=== PATIENT | female | born 1960 | race Caucasian/White ===

== ENCOUNTER → 2018-05-26 | Outpatient (CLI) | payer OTHER ==
[~2018-05-26] MED LIST: ABILIFY5 MG PO; ATORVASTATIN CA20 MG PO; GABAPENTIN300 MG PO; KLONOPIN1 MG PO; LAMOTRIGINE25 MG PO; LOSARTAN POTASS25 MG PO; METOPROLOL SUCC25 MG PO; OLANZAPINE5 MG PO
--- NOTE | 2018-05-26 16:50 | Diagnostic Imaging Report ---
EXAM: CT Chest WITHOUT contrast 05/26/2018 9:27 AM INDICATION: ^COPD COMPARISON: CT abdomen and pelvis 08/24/2016 TECHNIQUE: Chest was scanned utilizing a multidetector helical scanner from the lung apex through the level of the adrenal glands without administration of IV contrast. Absence of intravenous contrast decreases sensitivity for detection of lymphadenopathy and vascular pathology. Coronal and sagittal reformations were obtained. Routine protocol was performed. IV CONTRAST: None COMPLICATIONS: None RADIATION DOSE: Total DLP: 242.8 mGy*cm Estimated effective dose: (DLP x 0.015 x size factor) mSv CTDIvol has been reviewed. It is below the limits set by the Radiation Protocol Committee (RPC). FINDINGS: LINES/ TUBES: None. LUNGS AND AIRWAYS: Mild bilateral upper lobe predominant centrilobular and paraseptal emphysema. Reticular scarring in the left upper lobe may represent early pulmonary fibrosis (series 3, image 52). No manav honeycombing. Mild bilateral central bronchiectasis. No suspicious pulmonary nodules or masses. No consolidations. PLEURA: The pleural spaces are clear. HEART AND MEDIASTINUM: The thyroid gland is normal. Few nonspecific subcentimeter mediastinal lymph nodes. The heart is normal in size. There is no pericardial effusion. Mild lipomatous hypertrophy of the interatrial septum. Mild atherosclerotic calcifications of the LAD. The thoracic aorta are normal in caliber and associated with mild calcifications in the aortic arch and descending thoracic segment. The main pulmonary artery is normal in caliber measuring 2.8 cm in diameter. UPPER ABDOMEN: Unremarkable. BONES: Remote posttraumatic deformity of the posterior right ninth and 10th ribs. Mild degenerative changes throughout the thoracic spine. SOFT TISSUES: Unremarkable. IMPRESSION: Bilateral centrilobular and paraseptal emphysema with few reticulation of the lungs in the anterior left upper lobe suggestive of a smoking related to mild pulmonary fibrosis. No suspicious pulmonary nodules or masses. Signed by: Dr. iLvia Toribio M.D. on 05/26/2018 4:47 PM
== END ==
LOC: CT 09:17
PROVIDERS: ATTEND Internal Medicine Interventional Cardiology
DX: J44.9 Chronic obstructive pulmonary disease, unspecified (principal)
CPT/HCPCS: 71250

== ENCOUNTER → 2019-03-07 | Day surgery (SDC) | payer OTHER ==
[~2019-03-07] MED LIST changes: +ASPIR 8181 MG PO; +FENTANYL CITRATE/PF 100MCG/2 ML INJ ONE; +METOCLOPRAMIDE HCL 10 MG/2ML VIAL ONE; +MIDAZOLAM HCL 2 MG/2 ML VIAL ONE; +OMEPRAZOLE40 MG PO; +PROPOFOL IV EMULSION 10 MG/ML 20 ML VIAL ONE; +THORAZINE25 MG PO; +VALIUM10 MG PO
--- OUTSIDE RECORDS SUMMARY | 2019-03-07 11:17 | XMS REPORT | Continuity of Care Document ---
Author Author [employer] Address Unknown Phone Unavailable Care Team Providers Care Customs House Broker Name Role Phone [employer] Unavailable Unavailable Problems Problem Status Onset Date Classification Date Reported Comments Source Asymptomatic microscopic hematuria 10/16/2017 01/17/2018 [facility] [place] R31.21 - ASYMPTOMATIC MICROSCOPIC HEMAT Active 10/05/2017 [facility] [place] Diverticulosis of intestine, part unspecified, without perforation or abscess without bleeding 01/17/2018 [facility] [place] Medications No Data Provided for This Section Allergies, Adverse Reactions, Alerts No Known Medication Allergies Immunizations No Data Provided for This Section Results No Data Provided for This Section Pathology Reports No Data Provided for This Section Diagnostic Reports Report Value Date Source Abdomen/Pelvis w/wo IV contrast CT EXAM: CT ABDOMEN AND PELVIS WITH AND WITHOUT CONTRAST DATE: 10/11/2017 11:52 AM CDT INDICATION: R31.21 asymptomatic microscopic hematuria COMPARISON: None. TECHNIQUE: Volumetric CT acquisition of the abdomen and pelvis before and after the intravenous administration contrast. Axial, coronal and sagittal reconstructions. Postcontrast phases: Venous and delayed IV contrast: 100 mL Omnipaque Oral contrast: Water CT Radiation Dose DLP 1079 mGy-cm AEC, mA/kV adjustment by patient size, and/or iterative reconstruction technique were used, per departmental dose-optimization program. FINDINGS: Lines and tubes: None. Lower thorax: Unremarkable Liver and biliary tree: There is a 1.2 cm hypodense lesion in the left hepatic dome seen only on the venous phase images. There are no associated suspicious imaging features. The liver is otherwise unremarkable. Gallbladder: Normal. No CT evidence of gallstones. Pancreas: Normal. Spleen: Normal. Adrenals: Normal. Kidneys and ureters: Normal. No hydronephrosis. No renal masses. No nephrolithiasis. No renal collecting system filling defects. Bladder: Unremarkable Reproductive organs: Hysterectomy. Unremarkable adnexal regions. Gastrointestinal tract: Severe colonic diverticulosis without CT evidence of acute diverticulitis. Appendix: Not visualized Peritoneum and retroperitoneum: No ascites or free air. Lymph nodes: No pathologic adenopathy. Vasculature: Moderate vascular calcification throughout the aorta and iliac arteries Bones: No acute abnormality. Soft tissues: Unremarkable. IMPRESSION: 1. Unremarkable kidneys and renal collecting systems. 2. Diverticulosis. 10/11/2017 [facility] [place] Consultation Notes No Data Provided for This Section Discharge Summaries No Data Provided for This Section History and Physicals No Data Provided for This Section Vital Signs No Data Provided for This Section Encounters Location Location Details Encounter Type Encounter Number Reason For Visit Attending Provider ADM Date DC Date Status Source [facility] [place] Outpt Diag Services [id number] Waldemar Ortiz Jr 10/11/2017 10/12/2017 [facility] [place] Procedures No Data Provided for This Section Assessment and Plan No Data Provided for This Section Plan of Care No Data Provided for This Section Social History Social History Date Source No data available for this section 10/12/2017 [facility] [place] Family History No Data Provided for This Section Advance Directives No Data Provided for This Section Functional Status No Data Provided for This Section
--- OUTSIDE RECORDS SUMMARY | 2019-03-07 11:17 | XMS REPORT | Summary of Care ---
Author Author [facility] [place] Organization [facility] [place] Address Unknown Phone Unavailable Encounter HQ Encntr_alias(FIN) [id number] Date(s): 10/11/17 - 10/11/17 [facility] [place] [address] [phone]- [phone] Encounter Diagnosis Asymptomatic microscopic hematuria (Final) - 10/15/17 Diverticulosis of intestine, part unspecified, without perforation or abscess wi thout bleeding (Final) - Discharge Disposition: Home or Self Care Attending Physician: Waldemar Pope MD Vital Signs No data available for this section Problem List No data available for this section Allergies, Adverse Reactions, Alerts No data available for this section Medications No data available for this section Results No data available for this section Immunizations No data available for this section Procedures No data available for this section Social History No data available for this section Assessment and Plan No data available for this section
--- OUTSIDE RECORDS SUMMARY | 2019-03-07 11:17 | XMS REPORT ---
Author Author [facility] Address Unknown Phone Unavailable Care Team Providers Care Instructor Military Science Name Role Phone CHANTEL MARSH Unavailable Unavailable Problems This patient has no known problems. Allergies, Adverse Reactions, Alerts This patient has no known allergies or adverse reactions. Medications This patient has no known medications. Results Test Description Test Time Test Comments Text Results Atomic Results Result Comments CT CHEST WO 2018-05-26 16:42:00 [facility] [address] [place] [address] Patient Name: JOE AUGUST MR #: [id number] : 1960 Age/Sex: 58/F Req #: [id number] [facility] Physician: Ordered by: CHANTEL MARSH MD Report #: [id number] Location: CT Room/Bed: Procedure: [id number] CT/CT CHEST WO Exam Date: Exam Time: REPORT STATUS: Signed EXAM: CT Chest WITHOUT contrast 05/26/2018 9:27 AM INDICATION: COPD COMPARISON: CT abdomen and pelvis 08/24/2016 TECHNIQUE: Chest was scanned utilizing a multidetector helical scanner from the lung apex through the level of the adrenal glands without administration of IV contrast. Absence of intravenous contrast decreases sensitivity for detection of lymphadenopathy and vascular pathology. Coronal and sagittal reformations were obtained. Routine protocol was performed. IV CONTRAST: None COMPLICATIONS: None RADIATION DOSE: Total DLP: 242.8 mGy*cm Estimated effective dose: (DLP x 0.015 x size factor) mSv CTDIvol has been reviewed. It is below the limits set by the Radiation Protocol Committee (RPC). FINDINGS: LINES/ TUBES: None. LUNGS AND AIRWAYS: Mild bilateral upper lobe predominant centrilobular and paraseptal emphysema. Reticular scarring in the left upper lobe may represent early pulmonary fibrosis (series 3, image 52). No manav honeycombing. Mild bilateral central bronchiectasis. No suspicious pulmonary nodules or masses. No consolidations. PLEURA: The pleural spaces are clear. HEART AND MEDIASTINUM: The thyroid gland is normal. Few nonspecific subcentimeter mediastinal lymph nodes. The heart is normal in size. There is no pericardial effusion. Mild lipomatous hypertrophy of the interatrial septum. Mild atherosclerotic calcifications of the LAD. The thoracic aorta are normal in caliber and associated with mild calcifications in the aortic arch and descending thoracic segment. The main pulmonary artery is normal in caliber measuring 2.8 cm in diameter. UPPER ABDOMEN: Unremarkable. BONES: Remote posttraumatic deformity of the posterior right ninth and 10th ribs. Mild degenerative changes throughout the thoracic spine. SOFT TISSUES: Unremarkable. IMPRESSION: Bilateral centrilobular and paraseptal emphysema with few reticulation of the lungs in the anterior left upper lobe suggestive of a smoking related to mild pulmonary fibrosis. No suspicious pulmonary nodules or masses. Signed by: Dr. Von Toribio M.D. on 05/26/2018 4:47 PM Dictated By: VON TORIBIO MD Electronicall y Signed By: VON TORIBIO MD on 05/26/181646 Transcribed By: LEO on 05/26/181646 COPY TO: CHANTEL MARSH MD
[2019-03-07 15:00] VITALS: BP 123/85
--- NOTE | 2019-03-07 18:31 | Operative Report ---
DATE OF PROCEDURE: 03/07/2019 SURGEON: Dante Vargas MD PROCEDURES: EGD with biopsies. INDICATIONS FOR PROCEDURE: Acid reflux and hoarseness. MEDICATIONS: The patient was done under MAC, please see anesthesiologist's note. PROCEDURE IN DETAIL: With the patient in left lateral decubitus position, a flexible fiberoptic Olympus gastroscope was introduced into the esophagus under direct visualization without any difficulty. The mucosa overlying the distal esophagus revealed some patchy areas of erythema. There was a submucosal polypoid lesion noted in distal esophagus just above the GE junction approximately 1.8 cm was in size with normal overlying mucosa. The patient will need an EUS for further evaluation. The scope was then advanced with ease into the stomach traversing a small sliding hiatal hernia. Mucosa overlying the antrum and the body revealed some patchy erythema and low-grade to moderate edema, and biopsies were obtained, sent to stain for H. pylori. Pylorus was of normal contour and shape, it was intubated with ease and the scope was advanced all the way to the second portion of the duodenum. The scope was then withdrawn slowly, mucosa overlying the proximal second portion and duodenal bulb grossly appeared to be within normal limits. Biopsies were obtained to rule out sprue. The scope was then withdrawn back into the stomach and retroflexed and mucosa overlying the fundus and the cardia appeared to be within normal limits. The scope was then straightened out, it was subsequently withdrawn, and the patient tolerated the procedure well. IMPRESSION: 1. Mild distal esophagitis. 2. Submucosal polypoid lesion distal esophagus just proximal to GE junction with normal overlying mucosa. The patient will need an EUS. 3. Small sliding hiatal hernia. 4. Gastritis, biopsied, biopsies sent to stain for Helicobacter pylori. 5. Rule out sprue. PLAN: Follow up histology. Increase omeprazole to 40 mg one p.o. before meals b.i.d. The patient will need an EUS of the esophageal submucosal lesion. We will need to set up an appointment with Dr. Galeana later. Dante Vargas MD [facility] [place] /[id number] cc: Dr. Jas Balderrama
== END | disposition home or self-care (01) ==
LOC: OR 11:13
PROVIDERS: ATTEND Internal Medicine Gastroenterology
DX: K22.10 Ulcer of esophagus without bleeding (principal); K29.70 Gastritis, unspecified, without bleeding; K22.8 Other specified diseases of esophagus; K21.9 Gastro-esophageal reflux disease without esophagitis; K31.89 Other diseases of stomach and duodenum; K44.9 Diaphragmatic hernia without obstruction or gangrene; K63.5 Polyp of colon; K57.30 Diverticulosis of large intestine without perforation or abscess without bleeding; R49.9 Unspecified voice and resonance disorder; R05 Cough; I10 Essential (primary) hypertension; J44.9 Chronic obstructive pulmonary disease, unspecified; E78.00 Pure hypercholesterolemia, unspecified; G47.00 Insomnia, unspecified; F31.9 Bipolar disorder, unspecified; F41.9 Anxiety disorder, unspecified; F17.210 Nicotine dependence, cigarettes, uncomplicated; Z88.8 Allergy status to other drugs, medicaments and biological substances; Z88.6 Allergy status to analgesic agent; Z01.810 Encounter for preprocedural cardiovascular examination; Z79.82 Long term (current) use of aspirin; Z68.31 Body mass index [BMI] 31.0-31.9, adult
CPT/HCPCS: 43239; 93005; J2250; J2704; J2765; J3010

== ENCOUNTER 2019-04-22 09:12 | Emergency (ER) | payer OTHER ==
[~2019-04-22] VITALS: Ht 160 cm; Wt 86.2 kg
[~2019-04-22 09:12] MED LIST changes: -FENTANYL CITRATE/PF 100MCG/2 ML INJ ONE; -METOCLOPRAMIDE HCL 10 MG/2ML VIAL ONE; -MIDAZOLAM HCL 2 MG/2 ML VIAL ONE; -PROPOFOL IV EMULSION 10 MG/ML 20 ML VIAL ONE
--- OUTSIDE RECORDS SUMMARY | 2019-04-22 09:16 | XMS REPORT | Continuity of Care Document ---
Author Author [employer] Address Unknown Phone Unavailable Care Team Providers Care Vulcanizer Name Role Phone [employer] Unavailable Unavailable Problems Problem Status Onset Date Classification Date Reported Comments Source Asymptomatic microscopic hematuria 10/16/2017 01/17/2018 [facility] [place] R31.21 - ASYMPTOMATIC MICROSCOPIC HEMAT Active 10/05/2017 [facility] [place] Diverticulosis of intestine, part unspecified, without perforation or abscess without bleeding 01/17/2018 [facility] [place] Medications No Data Provided for This Section [...] renal collecting systems. 2. Diverticulosis. 10/11/2017 [facility] [place] Consultation Notes No Data Provided for This Section Discharge Summaries No Data Provided for This Section History and Physicals No Data Provided for This Section Vital Signs No Data Provided for This Section Encounters Location Location Details Encounter Type Encounter Number Reason For Visit Attending Provider ADM Date DC Date Status Source [facility] [place] Outpt Diag Services [id number] Waldemar Ortiz Jr 10/11/2017 10/12/2017 [facility] [place] Procedures No Data Provided for This Section Assessment and Plan No Data Provided for This Section Plan of Care No Data Provided for This Section Social History Social History Date Source No data available for this section 10/12/2017 [facility] [place] Family History No Data Provided for This Section Advance Directives No Data Provided for This Section Functional Status No Data Provided for This Section
--- OUTSIDE RECORDS SUMMARY | 2019-04-22 09:16 | XMS REPORT | Clinical Summary ---
Author Author [facility] Address Unknown Phone Unavailable Care Team Providers Care Screw Machine Operator Single Spindle Name Role Phone Sharpless PCP Allergies Comments Active Allergy Reactions Severity Noted Date Codeine Itching 09/10/2014 Medications End Date Status Medication Sig Dispensed Refills Start Date Active diazePAM (VALIUM) 10 MG Take 10 mg by 0 tablet mouth every 6 (six) hours as needed for Anxiety. Active atorvastatin (LIPITOR) 20 Take 20 mg by 0 MG tablet mouth daily. Active metoprolol (LOPRESSOR) 25 Take 25 mg by 0 MG tablet mouth 2 (two) times daily. Active omeprazole (PRILOSEC) 40 Take 40 mg by 0 MG capsule mouth daily. Active chlorproMAZINE Take 50 mg by 0 (THORAZINE) 50 MG tablet mouth 3 (three) times daily. Active losartan (COZAAR) 50 MG Take 50 mg by 0 tablet mouth daily. Active ergocalciferol (VITAMIN Take 50,000 0 D2) 50,000 unit capsule Units by mouth once a week. Active Problems Not on file Encounters Care Team Description Date Type Specialty José Miguel Howard MD UPPER ENDOSCOPY,ULTRASOUND 04/06/2019 Surgery Kayile Mejia CRNA 04/06/2019 Anesthesia Event José Miguel Howard MD 04/06/2019 Hospital Encounter after 04/21/2018 Social History Date Tobacco Use Types Packs/Day Years Used Current Every Day Smoker 0.5 Smokeless Tobacco: Never Used Tobacco Cessation: Ready to Quit: No; Counseling Given: No Alcohol Use Drinks/Week oz/Week Comments No Alcohol Habits Answer Date Recorded How often do you have a drink containing alcohol? Never 04/06/2019 How many drinks containing alcohol do you have on Not asked a typical day when you are drinking? How often do you have six or more drinks on one Not asked occasion? Sex Assigned at Date Recorded Not on file Industry Job Start Date Occupation Not on file Not on file Not on file Travel End Travel History Travel Start No recent travel history available. Last Filed Vital Signs Time Taken Vital Sign Reading 04/06/2019 10:40 AM CDT Blood Pressure 104/54 04/06/2019 10:40 AM CDT Pulse 54 04/06/2019 10:13 AM CDT Temperature 36.6 C (97.8 F) 04/06/2019 10:40 AM CDT Respiratory Rate 18 04/06/2019 10:40 AM CDT Oxygen Saturation 96% - Inhaled Oxygen - Concentration 04/06/2019 9:38 AM CDT Weight 76.6 kg (168 lb 12.8 oz) 04/06/2019 9:38 AM CDT Height 162.6 cm (5' 4") 04/06/2019 9:38 AM CDT Body Mass Index 28.97 Plan of Treatment Not on file Procedures Comments Procedure Name Priority Date/Time Associated Diagnosis UPPER 04/06/2019 Gastric lesion ENDOSCOPY,ULTRASOUND 11:00 AM CDT Special Needs (LINEAR SCOPE) REPORT OF PROCEDURE - 04/06/2019 ENDOSCOPY URL 10:39 AM CDT after 04/21/2018 Results * REPORT OF PROCEDURE - ENDOSCOPY URL (04/06/2019 10:39 AM CDT) Narrative Performed At after 04/21/2018 Insurance Payer Benefit Subscriber ID Type Phone Address Plan / Group [facility] xxxxxxxxx HMO/POS CARE POS SELECT CHOICE
[2019-04-22] MEDS ORDERED: HYDROMORPHONE 1MG/1ML INJ IM NR (11:00)
[2019-04-22] MEDS ORDERED: KETOROLAC TROMETHAMINE 60 MG/2 ML VIAL IM NR (11:00)
--- NOTE | 2019-04-22 11:23 | NUR ---
1124- Dilaudid 1mg IM to RT Gluteal muscle and Toradol 60mg IM to left Gluteal muscle. Patient max well. Will reasses in 20 min
== END 2019-04-22 11:57 | disposition home or self-care (01) ==
LOC: ER 09:12
DX: M54.32 Sciatica, left side (principal); I10 Essential (primary) hypertension; E11.9 Type 2 diabetes mellitus without complications
CPT/HCPCS: 99283; J1170; J1885

== ENCOUNTER 2019-04-30 23:30 | Emergency (ER) | payer SELFPAY ==
--- OUTSIDE RECORDS SUMMARY | 2019-04-30 23:34 | XMS REPORT | Clinical Summary ---
Author Author [facility] Address Unknown Phone Unavailable Care Team Providers Care Central Office Inspector Name Role Phone Sharpless PCP Allergies Comments [...] Miguel Howard MD UPPER ENDOSCOPY,ULTRASOUND 04/06/2019 Surgery Kaylie Mejia CRNA 04/06/2019 Anesthesia Event José Miguel Howard MD 04/06/2019 Hospital Encounter after 04/29/2018 Social History Date Tobacco Use Types Packs/Day [...] 04/06/2019 ENDOSCOPY URL 10:39 AM CDT after 04/29/2018 Results * REPORT OF PROCEDURE - ENDOSCOPY URL (04/06/2019 10:39 AM CDT) Narrative Performed At after 04/29/2018 Insurance Payer Benefit Subscriber ID Type Phone Address Plan / Group [facility] HMO/POS CARE POS SELECT CHOICE
--- OUTSIDE RECORDS SUMMARY | 2019-04-30 23:34 | XMS REPORT | Continuity of Care Document ---
Author Author [employer] Address Unknown Phone Unavailable Care Team Providers Care Clinical Laboratory Manager Name Role Phone [employer] Unavailable Unavailable Problems Problem Status Onset Date Classification Date Reported Comments Source Asymptomatic microscopic hematuria 10/16/2017 01/17/2018 [facility] [place] R31.21 - ASYMPTOMATIC MICROSCOPIC HEMAT Active 10/05/2017 [facility] [place] Diverticulosis of intestine, part unspecified, without perforation or abscess without bleeding 01/17/2018 [facility] [place] Medications No Data Provided for This Section [...] renal collecting systems. 2. Diverticulosis. 10/11/2017 [facility] [place] Consultation Notes No Data Provided for This Section Discharge Summaries No Data Provided for This Section History and Physicals No Data Provided for This Section Vital Signs No Data Provided for This Section Encounters Location Location Details Encounter Type Encounter Number Reason For Visit Attending Provider ADM Date DC Date Status Source [facility] [place] Outpt Diag Services [id number] Waldemar Ortiz Jr 10/11/2017 10/12/2017 [facility] [place] Procedures No Data Provided for This Section Assessment and Plan No Data Provided for This Section Plan of Care No Data Provided for This Section Social History Social History Date Source No data available for this section 10/12/2017 [facility] [place] Family History No Data Provided for This Section Advance Directives No Data Provided for This Section Functional Status No Data Provided for This Section
--- NOTE | 2019-05-01 00:30 | NUR ---
PT CALLED FOR TRIAGE - NO ANSWER
== END 2019-05-01 00:53 | disposition left against medical advice (07) ==
LOC: ER 23:30
DX: R52 Pain, unspecified (principal)

== ENCOUNTER 2019-05-01 10:38 | Emergency (ER) | payer OTHER ==
[~2019-05-01] VITALS: Ht 160 cm; Wt 86.2 kg
--- OUTSIDE RECORDS SUMMARY | 2019-05-01 10:41 | XMS REPORT | Continuity of Care Document ---
Author Author [employer] Address Unknown Phone Unavailable Care Team Providers Care Nutrition Program Instructor Name Role Phone [employer] Unavailable Unavailable Problems Problem Status Onset Date Classification Date Reported Comments Source Asymptomatic microscopic hematuria 10/16/2017 01/17/2018 [facility] [place] R31.21 - ASYMPTOMATIC MICROSCOPIC HEMAT Active 10/05/2017 [facility] [place] Diverticulosis of intestine, part unspecified, without perforation or abscess without bleeding 01/17/2018 [facility] [place] Medications No Data Provided for This Section [...] collecting systems. 2. Diverticulosis. 10/11/2017 [facility] [place] Consultation Notes No Data Provided for This Section Discharge Summaries No Data Provided for This Section History and Physicals No Data Provided for This Section Vital Signs No Data Provided for This Section Encounters Location Location Details Encounter Type Encounter Number Reason For Visit Attending Provider ADM Date DC Date Status Source [facility] - [place] Outpt Diag Services [id number] Waldemar Ortiz Jr 10/11/2017 10/12/2017 [facility] [place] Procedures No Data Provided for This Section Assessment and Plan No Data Provided for This Section Plan of Care No Data Provided for This Section Social History Social History Date Source No data available for this section 10/12/2017 [facility] [place] Family History No Data Provided for This Section Advance Directives No Data Provided for This Section Functional Status No Data Provided for This Section
[2019-05-01] MEDS ORDERED: KETOROLAC TROMETHAMINE 60 MG/2 ML VIAL IM ONE (11:00)
[2019-05-01 11:19] LABS: BILIRUBIN,URINE NEGATIVE (NEGATIVE); CLARITY,URINE CLEAR (CLEAR); COLOR,URINE YELLOW (YELLOW); KETONES,URINE NEGATIVE (NEGATIVE); LEUKOCYTE ESTERASE ,URINE NEGATIVE (NEGATIVE); NITRITE,URINE NEGATIVE (NEGATIVE); PROTEIN,URINE DIPSTICK TRACE (NEGATIVE); URINE UROBILINOGEN 0.2 mg/dL (0.2 - 1)
[2019-05-01 11:36] LABS: BACTERIA,URINE RARE /HPF; EPITHELIAL CELLS,URINE FEW /LPF
[2019-05-01 12:22] VITALS: BP 106/67
== END 2019-05-01 12:22 | disposition home or self-care (01) ==
LOC: ER 10:38
DX: M54.41 Lumbago with sciatica, right side (principal); N30.91 Cystitis, unspecified with hematuria; I10 Essential (primary) hypertension; F41.9 Anxiety disorder, unspecified; F31.9 Bipolar disorder, unspecified
CPT/HCPCS: 81001; 96372; 99283; J1885

== ENCOUNTER → 2020-11-27 | Outpatient (CLI) | payer OTHER ==
[~2020-11-27] MED LIST changes: +IOPAMIDOL 370 MG/ML 200 ML INFUS..BTL INJ ONE; +SODIUM CHLORIDE 0.9% 50ML 50 ML ONE
[2020-11-27 17:00] LABS: BLOOD UREA NITROGEN 8 mg/dL (7-26); BUN/CREATININE RATIO 10 (6-25); CREATININE, SERUM 0.78 mg/dL (0.57-1.11); EST GLOMERULAR FILTRATION RATE > 60 ML/MIN (60-)
== END ==
LOC: CT 16:07
PROVIDERS: ATTEND Internal Medicine Gastroenterology
DX: R10.33 Periumbilical pain (principal); K42.9 Umbilical hernia without obstruction or gangrene
CPT/HCPCS: 36415; 74177; 82565; 84520; Q9967

== ENCOUNTER → 2020-12-10 | Day surgery (SDC) | payer OTHER ==
[2020-12-05 09:38] LABS: BASOPHILS # (AUTO) 0.1 (0.0-0.1); BASOPHILS % 0.7 % (0.0-1.0); EOSINOPHILS # (AUTO) 0.1 (0.0-0.4); EOSINOPHILS % 1.2 % (0.0-6.0); HEMATOCRIT 40.2 % (34.2-44.1); HEMOGLOBIN 13.4 g/dL (12.0-16.0); LYMPHOCYTES # (AUTO) 2.1 (1.0-3.2); LYMPHOCYTES % 24.3 % (18.0-39.1); MEAN CORPUSCULAR HEMOGLOBIN 32.3 pg (28-32); MEAN CORPUSCULAR HGB CONC 33.3 g/dL (31-35); MEAN CORPUSCULAR VOLUME 96.9 fL (81-99); MONOCYTES # (AUTO) 0.6 (0.2-0.8); MONOCYTES % 6.7 % (4.4-11.3); NEUTROPHILS # (AUTO) 5.6 (2.1-6.9); NEUTROPHILS % 66.9 % (38.7-80.0); PLATELET COUNT 230 x10e3/uL (140-360); RED BLOOD COUNT 4.15 x10e6/uL (3.6-5.1); RED CELL DISTRIBUTION WIDTH 13.2 % (11.7-14.4)
[~2020-12-10] MED LIST changes: +GLUCAGON FOR INJ 1 MG VIAL ONE; +HYOSCYAMINE SULFATE 0.5 MG/ML INJ ONE; -IOPAMIDOL 370 MG/ML 200 ML INFUS..BTL INJ ONE; +KLONOPIN0.5 MG PO; +MIDAZOLAM HCL 2 MG/2 ML VIAL ONE; +PANTOPRAZOLE 40 MG 10ML VIAL ONE; +PROPOFOL IV EMULSION 10 MG/ML 20 ML VIAL ONE; -SODIUM CHLORIDE 0.9% 50ML 50 ML ONE; +TRAZODONE HCL50 MG PO; +TRELEGY ELLIPT1 EACH INH
[2020-12-10 16:39] VITALS: BP 94/75
== END | disposition home or self-care (01) ==
LOC: OR 12:19
PROVIDERS: ATTEND Internal Medicine Gastroenterology
DX: K29.70 Gastritis, unspecified, without bleeding (principal); D12.0 Benign neoplasm of cecum; D12.5 Benign neoplasm of sigmoid colon; K44.9 Diaphragmatic hernia without obstruction or gangrene; K20.90 Esophagitis, unspecified without bleeding; K21.9 Gastro-esophageal reflux disease without esophagitis; K22.8 Other specified diseases of esophagus; K57.30 Diverticulosis of large intestine without perforation or abscess without bleeding; J44.9 Chronic obstructive pulmonary disease, unspecified; E78.5 Hyperlipidemia, unspecified; I10 Essential (primary) hypertension; I73.9 Peripheral vascular disease, unspecified; R00.1 Bradycardia, unspecified; F32.9 Major depressive disorder, single episode, unspecified; F41.9 Anxiety disorder, unspecified; F17.210 Nicotine dependence, cigarettes, uncomplicated; Z88.6 Allergy status to analgesic agent; Z01.810 Encounter for preprocedural cardiovascular examination; Z01.812 Encounter for preprocedural laboratory examination; Z20.822 Contact with and (suspected) exposure to COVID-19; Z79.82 Long term (current) use of aspirin
CPT/HCPCS: 36415; 43235; 45384; 45385; 85025; 93005; C9113; J1610; J1980; J2704; U0002; 45378; J2250

== ENCOUNTER 2020-12-11 14:14 | Emergency (ER) | payer OTHER ==
[~2020-12-11] VITALS: Ht 162.6 cm; Wt 78.9 kg
[~2020-12-11 14:14] MED LIST changes: -GLUCAGON FOR INJ 1 MG VIAL ONE; -HYOSCYAMINE SULFATE 0.5 MG/ML INJ ONE; -MIDAZOLAM HCL 2 MG/2 ML VIAL ONE; -PANTOPRAZOLE 40 MG 10ML VIAL ONE; -PROPOFOL IV EMULSION 10 MG/ML 20 ML VIAL ONE
[2020-12-11] MEDS ORDERED: SODIUM CHLORIDE 0.9% 1000ML 1,000 ML IV SCH (14:45)
[2020-12-11] MEDS ORDERED: SODIUM CHLORIDE 0.9% 1000ML 1,000 ML ONE (14:59)
[2020-12-11 16:47] VITALS: BP 157/80
== END 2020-12-11 16:49 | disposition home or self-care (01) ==
LOC: FSED 14:45
DX: R42 Dizziness and giddiness (principal); E86.1 Hypovolemia; E86.0 Dehydration; I10 Essential (primary) hypertension; E78.5 Hyperlipidemia, unspecified; J44.9 Chronic obstructive pulmonary disease, unspecified; F31.9 Bipolar disorder, unspecified; F17.210 Nicotine dependence, cigarettes, uncomplicated
CPT/HCPCS: 80053; 81003; 82553; 84484; 85025; 93005; 99283; J7030

== ENCOUNTER → 2021-02-05 | Outpatient (CLI) | payer OTHER ==
[~2021-02-05] MED LIST changes: +IOPAMIDOL 370 MG/ML 200 ML INFUS..BTL INJ ONE; +SODIUM CHLORIDE 0.9% 50ML 50 ML ONE
== END ==
LOC: CT 07:07
PROVIDERS: ATTEND Nurse Practitioner Family
DX: R06.02 Shortness of breath (principal); J44.9 Chronic obstructive pulmonary disease, unspecified
CPT/HCPCS: 71260; Q9967

== ENCOUNTER 2021-06-04 13:36 | Emergency (ER) | payer OTHER ==
[~2021-06-04] VITALS: Ht 162.6 cm; Wt 78.9 kg
[~2021-06-04 13:36] MED LIST changes: -IOPAMIDOL 370 MG/ML 200 ML INFUS..BTL INJ ONE; -SODIUM CHLORIDE 0.9% 50ML 50 ML ONE
[2021-06-04] MEDS ORDERED: CIPROFLOXACIN 400 MG/D5W 200ML 200 ML IV SCH (14:45)
[2021-06-04] MEDS ORDERED: METRONIDAZOLE 500MG/NS 100ML 100 ML IV SCH (14:45)
[2021-06-04] MEDS ORDERED: KETOROLAC TROMETHAMINE 30 MG/ML VIAL IV STA (15:25)
[2021-06-04] MEDS ORDERED: METRONIDAZOLE 500MG/NS 100ML 100 ML IV ONE (15:32)
[2021-06-04] MEDS ORDERED: CIPROFLOXACIN 400 MG/D5W 200ML 200 ML IV ONE (15:33)
[2021-06-04] MEDS ORDERED: KETOROLAC TROMETHAMINE 30 MG/ML VIAL ONE (15:42)
[2021-06-04 16:28] VITALS: BP 123/70
== END 2021-06-04 16:31 | disposition home or self-care (01) ==
LOC: FSED 14:29
DX: R10.32 Left lower quadrant pain (principal); K57.32 Diverticulitis of large intestine without perforation or abscess without bleeding; I10 Essential (primary) hypertension; E78.5 Hyperlipidemia, unspecified; J44.9 Chronic obstructive pulmonary disease, unspecified; F31.9 Bipolar disorder, unspecified
CPT/HCPCS: 74176; 80053; 85025; 99283; J0744; J1885

== ENCOUNTER 2021-06-14 10:22 | Inpatient (IN) | payer OTHER ==
[~2021-06-14] VITALS: Ht 162.6 cm; Wt 78.9 kg
[2021-06-14] MEDS ORDERED: SODIUM CHLORIDE 0.9% 1000ML 1,000 ML IV STA (10:40)
[2021-06-14] MEDS ORDERED: KETOROLAC TROMETHAMINE 30 MG/ML VIAL IV ONE (10:40)
[2021-06-14] MEDS ORDERED: FENTANYL CITRATE/PF 100MCG/2 ML INJ IV ONE (10:45)
[2021-06-14] MEDS ORDERED: ONDANSETRON HCL INJ 2MG/ML 2ML 2 MG/ML VIAL IV PRN (10:45)
[2021-06-14 11:03] LABS: BASOPHILS # (AUTO) 0.1 (0.0-0.1); BASOPHILS % 0.7 % (0.0-1.0); EOSINOPHILS # (AUTO) 0.1 (0.0-0.4); EOSINOPHILS % 1.1 % (0.0-6.0); HEMATOCRIT 41.8 % (34.2-44.1); HEMOGLOBIN 13.6 g/dL (12.0-16.0); LYMPHOCYTES % 26.5 % (18.0-39.1); MEAN CORPUSCULAR HEMOGLOBIN 32.1 pg (28-32); MEAN CORPUSCULAR HGB CONC 32.5 g/dL (31-35); MEAN CORPUSCULAR VOLUME 98.6 fL (81-99); MONOCYTES # (AUTO) 0.5 (0.2-0.8); MONOCYTES % 7.2 % (4.4-11.3); NEUTROPHILS # (AUTO) 4.7 (2.1-6.9); NEUTROPHILS % 64.2 % (38.7-80.0); PLATELET COUNT 269 x10e3/uL (140-360); RED BLOOD COUNT 4.24 x10e6/uL (3.6-5.1); RED CELL DISTRIBUTION WIDTH 12.4 % (11.7-14.4)
[2021-06-14] MEDS: LEVOFLOXACIN 750MG/D5W 150ML 150 ML IV SCH (11:15)
[2021-06-14 11:22] LABS: ALBUMIN 3.9 g/dL (3.5-5.0); ALBUMIN/GLOBULIN RATIO 1.1 (0.8-2.0); ANION GAP 14.7 mmol/L (8-16); CALCIUM 9.2 mg/dL (8.4-10.2); CREATININE, SERUM 0.79 mg/dL (0.57-1.11); POTASSIUM 3.7 mmol/L (3.5-5.1)
[2021-06-14] MEDS: METRONIDAZOLE 750MG/NS 150ML 150 ML IV SCH ×2 (12:24→23:24)
[2021-06-14 13:07] LABS: CLARITY,URINE CLEAR (CLEAR); COLOR,URINE YELLOW (YELLOW); KETONES,URINE NEGATIVE (NEGATIVE); LEUKOCYTE ESTERASE ,URINE NEGATIVE (NEGATIVE); NITRITE,URINE NEGATIVE (NEGATIVE); PROTEIN,URINE DIPSTICK NEGATIVE (NEGATIVE); URINE UROBILINOGEN 0.2 mg/dL (0.2 - 1)
[2021-06-14 13:08] LABS: BACTERIA,URINE RARE /HPF; EPITHELIAL CELLS,URINE FEW /LPF; WBC,URINE (MAN) 0-5 /HPF (0-5)
[2021-06-14] MEDS: SODIUM CHLORIDE 0.9% 1000ML 1,000 ML IV SCH ×2 (13:55→21:45)
[2021-06-14] MEDS: ONDANSETRON HCL INJ 2MG/ML 2ML 2 MG/ML VIAL IV PRN (15:37)
[2021-06-14 15:40] VITALS: BP 119/91
[2021-06-14] MEDS ORDERED: TRAMADOL HCL 50 MG TAB PO PRN (18:00)
[2021-06-14] MEDS: METOPROLOL SUCCINATE 25 MG TAB XL PO SCH (18:06)
[2021-06-14 20:00] VITALS: BP 113/66
[2021-06-14] MEDS ORDERED: ALBUTEROL/IPRATROPIUM 3 ML NEB NEB PRN (20:45)
[2021-06-14] MEDS ORDERED: TRAZODONE HCL 50 MG TAB PO SCH (21:00)
[2021-06-14 21:05] VITALS: BP 113/66
[2021-06-14] MEDS: ATORVASTATIN 20 MG TAB PO SCH (21:45)
[2021-06-14] MEDS: MELATONIN 5 MG TABLET PO SCH (21:45)
[2021-06-15] VITALS (8 sets, daily range): BP systolic 95–144; BP diastolic 57–73
[2021-06-15 06:20] LABS: BASOPHILS # (AUTO) 0.1 (0.0-0.1); BASOPHILS % 0.8 % (0.0-1.0); EOSINOPHILS # (AUTO) 0.2 (0.0-0.4); EOSINOPHILS % 2.4 % (0.0-6.0); HEMATOCRIT 36.8 % (34.2-44.1); HEMOGLOBIN 11.6 g/dL (12.0-16.0); LYMPHOCYTES # (AUTO) 2.1 (1.0-3.2); MEAN CORPUSCULAR HEMOGLOBIN 31.6 pg (28-32); MEAN CORPUSCULAR HGB CONC 31.5 g/dL (31-35); MEAN CORPUSCULAR VOLUME 100.3 fL (81-99); MONOCYTES # (AUTO) 0.4 (0.2-0.8); MONOCYTES % 7.1 % (4.4-11.3); NEUTROPHILS # (AUTO) 3.4 (2.1-6.9); NEUTROPHILS % 55.4 % (38.7-80.0); PLATELET COUNT 221 x10e3/uL (140-360); RED BLOOD COUNT 3.67 x10e6/uL (3.6-5.1); RED CELL DISTRIBUTION WIDTH 12.3 % (11.7-14.4)
[2021-06-15 06:39] LABS: ANION GAP 12.9 mmol/L (8-16); CALCIUM 8.8 mg/dL (8.4-10.2); CREATININE, SERUM 0.76 mg/dL (0.57-1.11); POTASSIUM 3.9 mmol/L (3.5-5.1)
[2021-06-15] MEDS: SODIUM CHLORIDE 0.9% 1000ML 1,000 ML IV SCH (07:18)
[2021-06-15] MEDS ORDERED: CHLORDIAZEPOXIDE/CLIDINIUM 1 CAP PO SCH (07:30)
[2021-06-15] MEDS: CLONAZEPAM 0.5 MG TAB PO SCH (08:25)
[2021-06-15] MEDS: ENOXAPARIN SOD INJ 40 MG/0.4 ML SYR SC SCH (08:25)
[2021-06-15] MEDS: METOPROLOL SUCCINATE 25 MG TAB XL PO SCH ×3 (08:25→20:11)
[2021-06-15] MEDS: ASPIRIN 81 MG CHEW TAB PO SCH (08:25)
[2021-06-15] MEDS: LEVOFLOXACIN 750MG/D5W 150ML 150 ML IV SCH (08:25)
[2021-06-15] MEDS: DICYCLOMINE HCL 20 MG TAB PO SCH ×3 (08:25→20:10)
[2021-06-15] MEDS: PANTOPRAZOLE SOD 40 MG TABEC PO SCH (08:25)
[2021-06-15] MEDS ORDERED: LAMOTRIGINE 25 MG TAB PO SCH (09:00)
[2021-06-15] MEDS: METRONIDAZOLE 750MG/NS 150ML 150 ML IV SCH (10:45)
[2021-06-15] MEDS: PIPERACILLIN/TAZOBACTAM 3.375 GM in SODIUM CHLORIDE 0.9% 50ML 50 ML IV SCH ×2 (13:39→21:02)
[2021-06-15] MEDS ORDERED: NICOTINE 21 MG/EA PATCH TOP PRN (17:15)
[2021-06-15] MEDS: ATORVASTATIN 20 MG TAB PO SCH (20:10)
[2021-06-15] MEDS: MELATONIN 5 MG TABLET PO SCH (20:10)
[2021-06-15] MEDS ORDERED: LAMOTRIGINE200 MG PO (20:16)
[2021-06-15] MEDS ORDERED: LAMOTRIGINE 100 MG TAB PO ONE (20:30)
[2021-06-15] MEDS ORDERED: LAMOTRIGINE 25 MG TAB PO ONE (20:30)
[2021-06-16] VITALS: BP 105/50
[2021-06-16 04:00] VITALS: BP 120/78
[2021-06-16] MEDS: PIPERACILLIN/TAZOBACTAM 3.375 GM in SODIUM CHLORIDE 0.9% 50ML 50 ML IV SCH (05:13)
[2021-06-16] MEDS: ONDANSETRON HCL INJ 2MG/ML 2ML 2 MG/ML VIAL IV PRN (07:00)
[2021-06-16 07:54] VITALS: BP 150/68
[2021-06-16 08:08] VITALS: BP 150/68
[2021-06-16] MEDS ORDERED: ONDANSETRON HCL INJ 2MG/ML 2ML 2 MG/ML VIAL IV PRN (08:45)
[2021-06-16] MEDS: ENOXAPARIN SOD INJ 40 MG/0.4 ML SYR SC SCH (08:48)
[2021-06-16] MEDS: DICYCLOMINE HCL 20 MG TAB PO SCH (08:48)
[2021-06-16] MEDS: ASPIRIN 81 MG CHEW TAB PO SCH (08:48)
[2021-06-16] MEDS: CLONAZEPAM 0.5 MG TAB PO SCH (08:48)
[2021-06-16] MEDS: PANTOPRAZOLE SOD 40 MG TABEC PO SCH (08:48)
[2021-06-16] MEDS: METOPROLOL SUCCINATE 25 MG TAB XL PO SCH (08:52)
[2021-06-16] MEDS ORDERED: LAMOTRIGINE 100 MG TAB PO SCH (09:00)
== END 2021-06-16 11:32 | disposition left against medical advice (07) | DRG 392 ==
LOC: ER 10:47 → ERHOLD 13:43 → MED/SURG 15:42 → OBSVTOIN 20:35
PROVIDERS: ADMIT Internal Medicine; ATTEND Internal Medicine
DX: K57.32 Diverticulitis of large intestine without perforation or abscess without bleeding (principal); J44.9 Chronic obstructive pulmonary disease, unspecified; I10 Essential (primary) hypertension; F31.9 Bipolar disorder, unspecified; K29.70 Gastritis, unspecified, without bleeding; Z20.822 Contact with and (suspected) exposure to COVID-19
CPT/HCPCS: 36415; 80048; 80053; 81001; 82948; 83690; 85025; 94799; 99284; J1650; J1885; J2405; J2543; J3010; J7030; U0002

== ENCOUNTER → 2021-07-14 | Day surgery (SDC) | payer OTHER ==
[2021-07-11 10:15] LABS: BASOPHILS # (AUTO) 0.1 (0.0-0.1); BASOPHILS % 0.7 % (0.0-1.0); EOSINOPHILS # (AUTO) 0.2 (0.0-0.4); EOSINOPHILS % 2.1 % (0.0-6.0); HEMATOCRIT 41.4 % (34.2-44.1); HEMOGLOBIN 13.3 g/dL (12.0-16.0); LYMPHOCYTES % 24.7 % (18.0-39.1); MEAN CORPUSCULAR HEMOGLOBIN 31.4 pg (28-32); MEAN CORPUSCULAR HGB CONC 32.1 g/dL (31-35); MEAN CORPUSCULAR VOLUME 97.9 fL (81-99); MONOCYTES # (AUTO) 0.5 (0.2-0.8); MONOCYTES % 6.2 % (4.4-11.3); NEUTROPHILS # (AUTO) 5.4 (2.1-6.9); NEUTROPHILS % 66.1 % (38.7-80.0); PLATELET COUNT 252 x10e3/uL (140-360); RED BLOOD COUNT 4.23 x10e6/uL (3.6-5.1); RED CELL DISTRIBUTION WIDTH 12.4 % (11.7-14.4)
[2021-07-11 10:35] LABS: ALBUMIN 3.9 g/dL (3.5-5.0); ALBUMIN/GLOBULIN RATIO 1.1 (0.8-2.0); ANION GAP 13.8 mmol/L (8-16); CALCIUM 9.3 mg/dL (8.4-10.2); CREATININE, SERUM 0.89 mg/dL (0.57-1.11); POTASSIUM 3.8 mmol/L (3.5-5.1)
[2021-07-14] VITALS (7 sets, daily range): BP systolic 103–123; BP diastolic 64–76
[~2021-07-14] VITALS: Ht 162.6 cm; Wt 77.6 kg
[~2021-07-14] MED LIST changes: +ALPRAZOLAM 0.5 MG TAB ONE; +DIPHENHYDRAMINE HCL 25 MG CAP ONE; +FENTANYL CITRATE/PF 100MCG/2 ML INJ ONE; +HEPARIN SOD (PORCINE) 1000 UNIT/ML 30ML ONE; +HEPARIN SOD/SOD CHLORIDE 2,000 ML ONE; +IOPAMIDOL 370 MG/ML 200 ML INFUS..BTL INJ ONE; +LAMOTRIGINE200 MG PO; +LIDOCAINE HCL 2% LOCAL 20 ML VIAL ONE; +MIDAZOLAM HCL 2 MG/2 ML VIAL ONE; +NITROGLYCERIN/D5W 200 MCG/ML 250 ML ONE; +SODIUM CHLORIDE 0.9% 1000ML 1,000 ML ONE; +VERAPAMIL HCL 2.5 MG/ML 2 ML VIAL ONE
== END | disposition home or self-care (01) ==
LOC: CATH LAB 09:26
PROVIDERS: ATTEND Internal Medicine Interventional Cardiology
DX: I25.10 Atherosclerotic heart disease of native coronary artery without angina pectoris (principal); Z01.812 Encounter for preprocedural laboratory examination; Z20.822 Contact with and (suspected) exposure to COVID-19; Z88.5 Allergy status to narcotic agent; J45.909 Unspecified asthma, uncomplicated; I10 Essential (primary) hypertension
CPT/HCPCS: 36415; 80053; 83880; 85025; 93454; C1887; J1644; J2001; J2250; J3010; J7030; Q9967; U0002; 99153

== ENCOUNTER → 2021-08-15 | Outpatient (CLI) | payer OTHER ==
[~2021-08-15] MED LIST changes: -ALPRAZOLAM 0.5 MG TAB ONE; -DIPHENHYDRAMINE HCL 25 MG CAP ONE; -FENTANYL CITRATE/PF 100MCG/2 ML INJ ONE; -HEPARIN SOD (PORCINE) 1000 UNIT/ML 30ML ONE; -HEPARIN SOD/SOD CHLORIDE 2,000 ML ONE; -IOPAMIDOL 370 MG/ML 200 ML INFUS..BTL INJ ONE; -LIDOCAINE HCL 2% LOCAL 20 ML VIAL ONE; -MIDAZOLAM HCL 2 MG/2 ML VIAL ONE; -NITROGLYCERIN/D5W 200 MCG/ML 250 ML ONE; -SODIUM CHLORIDE 0.9% 1000ML 1,000 ML ONE; -VERAPAMIL HCL 2.5 MG/ML 2 ML VIAL ONE
== END ==
LOC: CT 13:31
PROVIDERS: ATTEND Internal Medicine Critical Care Medicine
DX: J44.9 Chronic obstructive pulmonary disease, unspecified (principal); G47.33 Obstructive sleep apnea (adult) (pediatric); K21.9 Gastro-esophageal reflux disease without esophagitis; F41.9 Anxiety disorder, unspecified; F17.200 Nicotine dependence, unspecified, uncomplicated
CPT/HCPCS: 71250

== ENCOUNTER → 2021-09-05 | Outpatient (CLI) | payer OTHER | LOC: RESP 11:55 | PROVIDERS: ATTEND Internal Medicine Critical Care Medicine | DX: J43.9 Emphysema, unspecified (principal); G47.33 Obstructive sleep apnea (adult) (pediatric); K21.9 Gastro-esophageal reflux disease without esophagitis; F41.9 Anxiety disorder, unspecified; Z20.822 Contact with and (suspected) exposure to COVID-19; F17.200 Nicotine dependence, unspecified, uncomplicated | CPT/HCPCS: 94060; 94664; 94729; U0002 ==

== ENCOUNTER 2022-04-06 09:03 | Emergency (ER) | payer OTHER ==
[~2022-04-06] VITALS: Ht 162.6 cm; Wt 83.7 kg
[2022-04-06] MEDS ORDERED: KETOROLAC TROMETHAMINE 30 MG/ML VIAL IV ONE (09:30)
[2022-04-06] MEDS ORDERED: FAMOTIDINE 20 MG/2 ML VIAL IV ONE ×2 (09:30→10:09)
[2022-04-06] MEDS ORDERED: ONDANSETRON HCL INJ 2MG/ML 2ML 2 MG/ML VIAL IV ONE (09:30)
[2022-04-06] MEDS ORDERED: SODIUM CHLORIDE 0.9% 1000ML 1,000 ML IV STA (09:30)
[2022-04-06] MEDS ORDERED: VALIUM5 MG PO (09:48)
[2022-04-06] MEDS ORDERED: SODIUM CHLORIDE 0.9% 1000ML 1,000 ML ONE (10:08)
[2022-04-06] MEDS ORDERED: ONDANSETRON HCL INJ 2MG/ML 2ML 2 MG/ML VIAL ONE (10:08)
[2022-04-06] MEDS ORDERED: PROVENTIL HFA6.7 GM INH (10:09)
[2022-04-06] MEDS ORDERED: TRELEGY ELLIPT1 EAC1 (10:09)
[2022-04-06] MEDS ORDERED: KETOROLAC TROMETHAMINE 30 MG/ML VIAL ONE (10:09)
[2022-04-06] MEDS ORDERED: IOPAMIDOL 370 MG/ML 100 ML INFUS..BTL INJ ONE (10:18)
[2022-04-06] MEDS ORDERED: LEVOFLOXACIN 500 MG TAB PO ONE (11:30)
[2022-04-06] MEDS ORDERED: METRONIDAZOLE 500MG/NS 100ML 100 ML IV ONE ×2 (11:30→11:56)
[2022-04-06] MEDS ORDERED: ACETAMINOPHEN-1 EAC4 PO (11:33)
[2022-04-06] MEDS ORDERED: ONDANSETRON ODT4 MG PO (11:33)
[2022-04-06] MEDS ORDERED: LEVOFLOXACIN500 MG PO (11:33)
[2022-04-06] MEDS ORDERED: METRONIDAZOLE500 MG PO (11:33)
[2022-04-06] MEDS ORDERED: LEVOFLOXACIN 500 MG TAB ONE (11:56)
== END 2022-04-06 12:52 | disposition home or self-care (01) ==
LOC: FSED 09:08
DX: R10.30 Lower abdominal pain, unspecified (principal); K57.32 Diverticulitis of large intestine without perforation or abscess without bleeding; R11.0 Nausea; R19.7 Diarrhea, unspecified; I10 Essential (primary) hypertension; J44.9 Chronic obstructive pulmonary disease, unspecified; E78.5 Hyperlipidemia, unspecified; K21.9 Gastro-esophageal reflux disease without esophagitis; F41.9 Anxiety disorder, unspecified; F31.9 Bipolar disorder, unspecified
CPT/HCPCS: 74177; 80048; 80076; 81003; 85025; 96374; 96375; 99284; J1885; J2405; J7030; Q9967

== ENCOUNTER → 2022-12-14 | Day surgery (SDC) | payer OTHER ==
[~2022-12-14] MED LIST changes: +ACETAMINOPHEN-1 EAC4 PO; +BENZONATATE200 MG PO; +CHLORPROMAZINE50 MG PO; +FENTANYL CITRATE/PF 100MCG/2 ML INJ ONE; +LACTATED RINGER'S 1,000 ML ONE; +LEVOFLOXACIN500 MG PO; +LIDOCAINE HCL 2% LOCAL INJ 5 ML SDV VIAL INJ ONE; +METOCLOPRAMIDE HCL 10 MG/2ML VIAL ONE; +METRONIDAZOLE500 MG PO; +ONDANSETRON ODT4 MG PO; +PROBIOTIC & AC1 EACH PO; +PROPOFOL IV EMULSION 10 MG/ML 20 ML VIAL ONE; +PROVENTIL HFA6.7 GM INH; +TRELEGY ELLIPT1 EAC1; +TRELEGY ELLIPT1 EACH; +VALIUM5 MG PO
[2022-12-14 08:17] VITALS: BP 124/76; PULSE 72; RESP 18; O2SAT 97
== END | disposition home or self-care (01) ==
LOC: OR 09:02
PROVIDERS: ATTEND Internal Medicine Gastroenterology
DX: K29.60 Other gastritis without bleeding (principal); K22.89 Other specified disease of esophagus; K21.9 Gastro-esophageal reflux disease without esophagitis; K20.90 Esophagitis, unspecified without bleeding; K44.9 Diaphragmatic hernia without obstruction or gangrene; Z86.010 Personal history of colon polyps; Z71.3 Dietary counseling and surveillance; I10 Essential (primary) hypertension; E78.00 Pure hypercholesterolemia, unspecified; J44.9 Chronic obstructive pulmonary disease, unspecified; F31.9 Bipolar disorder, unspecified; F41.9 Anxiety disorder, unspecified; F17.210 Nicotine dependence, cigarettes, uncomplicated; Z71.6 Tobacco abuse counseling; Z88.6 Allergy status to analgesic agent; Z01.810 Encounter for preprocedural cardiovascular examination; Z79.899 Other long term (current) drug therapy; Z68.31 Body mass index [BMI] 31.0-31.9, adult; Z87.19 Personal history of other diseases of the digestive system
CPT/HCPCS: 43239; 93005; C9113; J2001; J2704; J2765; J7121

== ENCOUNTER 2023-05-28 22:26 | Emergency (ER) | payer OTHER ==
[~2023-05-28] VITALS: Ht 162.6 cm; Wt 83.5 kg
[~2023-05-28 22:26] MED LIST changes: -FENTANYL CITRATE/PF 100MCG/2 ML INJ ONE; -LACTATED RINGER'S 1,000 ML ONE; -LIDOCAINE HCL 2% LOCAL INJ 5 ML SDV VIAL INJ ONE; -METOCLOPRAMIDE HCL 10 MG/2ML VIAL ONE; -PROPOFOL IV EMULSION 10 MG/ML 20 ML VIAL ONE
[2023-05-28 22:30] VITALS: O2SAT 100
== END 2023-05-28 22:49 | disposition home or self-care (01) ==
LOC: ER 22:35
DX: R13.10 Dysphagia, unspecified (principal); K22.2 Esophageal obstruction; I10 Essential (primary) hypertension; J44.9 Chronic obstructive pulmonary disease, unspecified; E78.5 Hyperlipidemia, unspecified; K21.9 Gastro-esophageal reflux disease without esophagitis; F31.9 Bipolar disorder, unspecified; Z87.19 Personal history of other diseases of the digestive system
CPT/HCPCS: 99282

== ENCOUNTER → 2023-06-08 | Day surgery (SDC) | payer OTHER ==
[2023-06-07 08:42] LABS: BASOPHILS # (AUTO) 0.1 (0.0-0.1); BASOPHILS % 0.7 % (0.0-1.0); EOSINOPHILS # (AUTO) 0.2 (0.0-0.4); EOSINOPHILS % 1.7 % (0.0-6.0); HEMATOCRIT 41.9 % (34.2-44.1); HEMOGLOBIN 14.2 g/dL (12.0-16.0); LYMPHOCYTES # (AUTO) 2.7 (1.0-3.2); LYMPHOCYTES % 28.6 % (18.0-39.1); MEAN CORPUSCULAR HEMOGLOBIN 33.3 pg (28-32); MEAN CORPUSCULAR HGB CONC 33.9 g/dL (31-35); MEAN CORPUSCULAR VOLUME 98.1 fL (81-99); MONOCYTES # (AUTO) 0.7 (0.2-0.8); MONOCYTES % 7.2 % (4.4-11.3); NEUTROPHILS # (AUTO) 5.8 (2.1-6.9); NEUTROPHILS % 61.6 % (38.7-80.0); PLATELET COUNT 219 x10e3/uL (140-360); RED BLOOD COUNT 4.27 x10e6/uL (3.6-5.1); WHITE BLOOD COUNT 9.43 x10e3/uL (4.8-10.8)
[~2023-06-08] MED LIST changes: +DEXMEDETOMIDINE HCL 200 MCG/2 ML VIAL ONE; +FENTANYL CITRATE/PF 100MCG/2 ML INJ ONE; +LACTATED RINGER'S 1,000 ML ONE; +LIDOCAINE HCL 2% LOCAL INJ 5 ML SDV VIAL INJ ONE; +METOCLOPRAMIDE HCL 10 MG/2ML VIAL ONE; +PROPOFOL IV EMULSION 10 MG/ML 20 ML VIAL ONE
[2023-06-08 14:22] VITALS: TEMP 97.3
[2023-06-08 14:35] VITALS: BP 133/81; PULSE 75; RESP 16; O2SAT 96
== END | disposition home or self-care (01) ==
LOC: ENDO 13:09
PROVIDERS: ATTEND Internal Medicine Gastroenterology
DX: K20.90 Esophagitis, unspecified without bleeding (principal); K29.70 Gastritis, unspecified, without bleeding; K22.89 Other specified disease of esophagus; K44.9 Diaphragmatic hernia without obstruction or gangrene; K31.1 Adult hypertrophic pyloric stenosis; K21.9 Gastro-esophageal reflux disease without esophagitis; Z86.010 Personal history of colon polyps; Z71.3 Dietary counseling and surveillance; I10 Essential (primary) hypertension; J44.9 Chronic obstructive pulmonary disease, unspecified; E78.5 Hyperlipidemia, unspecified; G40.909 Epilepsy, unspecified, not intractable, without status epilepticus; F41.9 Anxiety disorder, unspecified; F31.9 Bipolar disorder, unspecified; F17.210 Nicotine dependence, cigarettes, uncomplicated; Z71.6 Tobacco abuse counseling; Z88.6 Allergy status to analgesic agent; Z01.812 Encounter for preprocedural laboratory examination; Z79.899 Other long term (current) drug therapy; Z68.30 Body mass index [BMI] 30.0-30.9, adult
CPT/HCPCS: 36415; 43235; 43450; 85025; C9113; J2001; J2704; J2765; J3010; J7121

== ENCOUNTER 2025-01-21 09:15 | Emergency (ER) | payer MEDICARE, OTHER ==
[~2025-01-21] VITALS: Ht 162.6 cm; Wt 85.5 kg
[~2025-01-21 09:15] MED LIST changes: -DEXMEDETOMIDINE HCL 200 MCG/2 ML VIAL ONE; -FENTANYL CITRATE/PF 100MCG/2 ML INJ ONE; -LACTATED RINGER'S 1,000 ML ONE; -LIDOCAINE HCL 2% LOCAL INJ 5 ML SDV VIAL INJ ONE; -METOCLOPRAMIDE HCL 10 MG/2ML VIAL ONE; -PROPOFOL IV EMULSION 10 MG/ML 20 ML VIAL ONE
[2025-01-21] MEDS: LACTATED RINGER'S 1,000 ML INJ ONE (10:23)
[2025-01-21] MEDS: ONDANSETRON HCL INJ 2MG/ML 2ML 2 MG/ML VIAL IV ONE (10:23)
[2025-01-21] MEDS: KETOROLAC TROMETHAMINE 30 MG/ML VIAL IV ONE (10:23)
[2025-01-21] MEDS ORDERED: TYLENOL325 MG PO (10:36)
[2025-01-21] MEDS ORDERED: ULTRAM 50MG50 MG PO (10:36)
[2025-01-21] MEDS ORDERED: METRONIDAZOLE500 MG PO (10:36)
[2025-01-21] MEDS ORDERED: CIPRO500 MG PO (10:36)
[2025-01-21] MEDS: CIPROFLOXACIN 500 MG TAB PO ONE (10:45)
[2025-01-21] MEDS: METRONIDAZOLE 500MG/NS 100ML 100 ML IV ONE (10:45)
[2025-01-21 11:51] VITALS: PULSE 86; RESP 18; TEMP 97.8; O2SAT 95
== END 2025-01-21 11:51 | disposition home or self-care (01) ==
LOC: FSED 09:23
DX: R10.32 Left lower quadrant pain (principal); K57.32 Diverticulitis of large intestine without perforation or abscess without bleeding; I10 Essential (primary) hypertension; J44.9 Chronic obstructive pulmonary disease, unspecified; E78.5 Hyperlipidemia, unspecified; K21.9 Gastro-esophageal reflux disease without esophagitis; F41.9 Anxiety disorder, unspecified; F31.9 Bipolar disorder, unspecified
CPT/HCPCS: 74176; 80048; 80076; 81003; 85025; 96374; 96375; 99284; J1885; J2405; J7121

== ENCOUNTER → 2025-03-19 | Day surgery (SDC) | payer MEDICARE ==
[~2025-03-19] MED LIST changes: +CIPRO500 MG PO; +FENTANYL CITRATE/PF 100MCG/2 ML INJ ONE; +METOPROLOL TART50 MG PO; +MIDAZOLAM HCL 2 MG/2 ML VIAL ONE; +PROPOFOL IV EMULSION 10 MG/ML 20 ML VIAL ONE; +TYLENOL325 MG PO; +ULTRAM 50MG50 MG PO
[2025-03-19] MEDS: LACTATED RINGER'S 1,000 ML ONE (06:58)
[2025-03-19 08:40] VITALS: TEMP 98.1
[2025-03-19 09:00] VITALS: BP 157/82; PULSE 60; RESP 18; O2SAT 100
== END | disposition home or self-care (01) ==
LOC: OR 05:31
PROVIDERS: ATTEND Internal Medicine Gastroenterology
DX: K57.92 Diverticulitis of intestine, part unspecified, without perforation or abscess without bleeding (principal); D12.0 Benign neoplasm of cecum; D12.3 Benign neoplasm of transverse colon; D12.4 Benign neoplasm of descending colon; D12.5 Benign neoplasm of sigmoid colon; K64.8 Other hemorrhoids; K21.9 Gastro-esophageal reflux disease without esophagitis; I10 Essential (primary) hypertension; E78.5 Hyperlipidemia, unspecified; J43.9 Emphysema, unspecified; F41.9 Anxiety disorder, unspecified; F17.200 Nicotine dependence, unspecified, uncomplicated; Z88.6 Allergy status to analgesic agent; Z01.810 Encounter for preprocedural cardiovascular examination; Z79.899 Other long term (current) drug therapy
CPT/HCPCS: 45385; 88305; 93005; J2250; J2704; J3010; J7121; 45378